=== PATIENT | male | born 1950 ===

== ENCOUNTER 2017-01-27 10:00 | Outpatient (RCR) | payer OTHER | END 2017-01-31 | disposition home or self-care (01) | LOC: PTY 10:00 | DX: C67.8 Malignant neoplasm of overlapping sites of bladder (principal); I73.9 Peripheral vascular disease, unspecified; E11.9 Type 2 diabetes mellitus without complications; I10 Essential (primary) hypertension; I25.810 Atherosclerosis of coronary artery bypass graft(s) without angina pectoris ==